=== PATIENT | female | born 1970 | race Caucasian/White ===

== ENCOUNTER 2024-06-14 05:59 | Emergency (ER) | payer OTHER ==
[~2024-06-14] VITALS: Ht 167.6 cm; Wt 115.0 kg
[2024-06-14 06:18] VITALS: BP 152/107; PULSE 78; RESP 20; TEMP 98.8; O2SAT 98
[2024-06-14] MEDS ORDERED: MECLIZINE 25MG TABLET PO ONE (07:15)
[2024-06-14 07:35] LABS: BASOPHILS % 0.7 % (0.0-2.0); EOSINOPHILS % 0.4 % (0.0-5.0); HEMATOCRIT. 40.7 % (36.0-48.0); HEMOGLOBIN. 13.7 g/dL (12.0-16.0); LYMPHOCYTES % 20.7 % (20.0-50.0); MEAN CORPUSCULAR HEMOGLOBIN 30.3 pg (28.0-32.0); MEAN CORPUSCULAR HGB CONC 33.8 g/dL (31.0-37.0); MEAN CORPUSCULAR VOLUME 89.6 fL (81.0-99.0); MEAN PLATELET VOLUME 9.9 fl (7.4-10.4); NEUTROPHILS % 73.2 % (40.0-76.0); PLATELET 204 x1000/uL (130-400); RED BLOOD CELL COUNT 4.54 mill/uL (4.2-5.4); WHITE BLOOD COUNT 7.6 x1000/uL (4.5-11.0)
[2024-06-14] MEDS: SODIUM CHLORIDE 0.9% 1,000 ML IV ONE (07:44)
[2024-06-14] MEDS: ONDANSETRON HCL 4MG/2ML INJ IV STA (07:44)
[2024-06-14 07:46] LABS: CHLORIDE 104 mEq/L (98-107); POTASSIUM 3.6 mEq/L (3.5-5.1); SODIUM 140 mEq/L (136-145)
[2024-06-14 07:47] LABS: CARBON DIOXIDE 29 mEq/L (21-32)
[2024-06-14 07:48] LABS: CALCIUM 9.3 mg/dL (8.7-10.4)
[2024-06-14 07:52] LABS: CREATININE 0.6 mg/dL (0.6-1.0); GLUCOSE 161 mg/dL (70-105)
[2024-06-14 07:53] LABS: UREA NITROGEN BLOOD 13 mg/dL (9-23)
[2024-06-14] MEDS: MECLIZINE 25MG TABLET PO NR (08:15)
[2024-06-14 09:44] LABS: ETHANOL BLOOD < 10 mg/dL (<10); TROPONIN I HIGH SENSITIVITY < 4 ng/L (3.0-34)
[2024-06-14] MEDS ORDERED: ONDA4TAB50 PO (10:13)
[2024-06-14] MEDS ORDERED: MECL-299 PO (10:13)
== END 2024-06-14 10:55 | disposition home or self-care (01) ==
LOC: ER 05:59
DX: R42 Dizziness and giddiness (principal); R41.82 Altered mental status, unspecified; Z91.040 Latex allergy status
CPT/HCPCS: 80048; 80320; 85025; 84484; 36415; 71045; 70450; 96361; 96374; 99285; J8597; J2405; J7030; G0480